=== PATIENT | female | born 1955 | race Caucasian/White ===

== ENCOUNTER → 2016-09-25 | Outpatient (CLI) | payer BC ==
[~2016-09-25] MED LIST: FLUT0.0529
[2016-09-25 10:55] LABS: BASO % 0.6 %; BASO ABS # 0.03 K/uL (0-0.2); COMPLETE YES; EOS % 6.1 %; HEMATOCRIT 38.7 % (37-47); IG% 0.2 %; LYMPH % 34.4 %; LYMPH ABS # 1.59 K/uL (1.2-3.4); MEAN CELL VOLUME 91.5 fL (80-100); MEAN CORPUSCULAR HEMOGLOBIN 31.2 pg (25-34); MEAN CORPUSCULAR HGB CONC 34.1 g/dl (32-36); MEAN PLATELET VOLUME 10.1 fL (7.4-10.4); MONO % 8.2 %; NEUT % 50.5 %; PLATELET COUNT 257 K/uL (130-400); RED BLOOD COUNT 4.23 M/uL (4.2-5.4); WHITE BLOOD COUNT 4.62 K/uL (4.8-10.8)
[2016-09-25 11:10] LABS: BLOOD UREA NITROGEN 14 mg/dl (7-18); BUN/CREATININE RATIO 16.6 (10-20); CALCIUM 9.4 mg/dl (8.5-10.1); CARBON DIOXIDE 28 mmol/L (21-32); CHLORIDE 107 mmol/L (98-107); CREATININE 0.83 mg/dl (0.60-1.20); GLUCOSE 85 mg/dl (70-99); SODIUM 141 mmol/L (136-145)
--- NOTE | 2016-09-30 09:07 | CODING QUERY MEDICAL NECESSITY ---
SUPPORTING DIAGNOSIS NEEDED Miles PALMER, A supporting diagnosis is required for the test/procedure performed on this patient in order for us to be reimbursed by the patient's insurance. Please provide a supporting diagnosis for the following test/procedure listed below next to the test name along with your signature. *If there is no additional diagnosis for this patient that would support the following test/procedure please document that below next to the test/procedure. Test(s)/Procedure(s) that require a supporting diagnosis: * ([id number]) VITAMIN D ASSAY DIAGNOSIS: DATE OF SERVICE: 09/25/16 Provider Signature: Date: Thank you Shamar Harrell [facility] Information Management Once completed, please kindly fax back to [phone] For questions please call [phone]
== END | disposition home or self-care (01) ==
LOC: C.LABBC 07:54
PROVIDERS: ATTEND Nurse Practitioner
DX: L50.1 Idiopathic urticaria (principal)

== ENCOUNTER → 2016-12-07 | Outpatient (CLI) | payer BC ==
--- NOTE | 2016-12-08 07:41 | MAMMOGRAPHY REPORT ---
BILATERAL DIGITAL SCREENING MAMMOGRAM TOMOSYNTHESIS WITH CAD: 12/07/2016 CLINICAL HISTORY: Routine screening. Patient has no complaints. TECHNIQUE: Breast tomosynthesis in addition to standard 2D mammography was performed. Current study was also evaluated with a Computer Aided Detection (CAD) system. COMPARISON: Comparison is made to exams dated: 12/05/2015 mammogram, 10/17/2014 mammogram, 09/22/2013 m ammogram, 09/07/2012 mammogram, 08/27/2010 mammogram - [facility], and 11/28/2008. BREAST COMPOSITION: The tissue of both breasts is heterogeneously dense, which may obscure small mas ses. FINDINGS: The parenchymal pattern is unchanged. No developing mass, architectural distortion or clus ter of suspicious microcalcifications is seen in either breast. IMPRESSION: ACR BI-RADS CATEGORY 2: BENIGN There is no mammographic evidence of malignancy. A 1 year screening mammogram is recommended. The pa tient will receive written notification of the results. Approximately 10% of breast cancers are not detected with mammography. A negative mammographic report should not delay biopsy if a clinically suggestive mass is present. Roseanna Hays M.D. ay/:12/07/2016 16:06:49 Professor Of Theater: Seema MACHADO(Aayush)([place]), [facility] letter sent: Normal 1/2 BI-RADS Code: ACR BI-RADS Category 2: Benign
== END | disposition home or self-care (01) ==
LOC: C.MAMM 13:16
PROVIDERS: ATTEND Family Medicine
DX: Z12.31 Encounter for screening mammogram for malignant neoplasm of breast (principal)

== ENCOUNTER 2017-06-03 10:15 | Emergency (ER) | payer OTHER ==
[~2017-06-03] VITALS: Ht 162.6 cm; Wt 73.0 kg
[2017-06-03 10:15] VITALS: O2SAT 96; Ht 162.6 cm; Wt 73.0 kg
[~2017-06-03 10:15] MED LIST changes: -ACET-1693 PO; -ASPI81TA28 PO; -CEPH500C PO; -CLR10 PO; -FLUT0.15 NAE; -IBUP-1050 PO; -MISCCAP80 PO; -MULT-506 PO; -MULTCAP7 PO; -ONDA4TAB10 SL; -OPTIRAY 320 IV PRN
[2017-06-03] MEDS ORDERED: ONDANSETRON INJ 2 MG/ML 2 ML VIAL IV STA ×2 (10:25→12:27)
[2017-06-03] MEDS ORDERED: SODIUM CHLORIDE 0.9% 1000ML 1,000 ML IV STA (10:25)
--- NOTE | 2017-06-03 10:33 | EMERGENCY ROOM VISIT NOTE ---
History First contact with patient: 10:17 Chief Complaint: SYNCOPE (NEAR SYNCOPE) Stated Complaint: REACTION TO CONTRAST IN CT History of Present Illness The patient is a 61 year old female who presents to the Emergency Room with complaints of nausea, sweating, abdominal pain, and near syncope which started today. She also notes a frontal sinus headache, intermittent chest pains, dry mouth. She has had abdominal discomfort for over a week. She saw her PCP this week and an outpt CT was ordered. This was just completed. The pain is LLQ, 4/10 , and dull. It worsens with pressure and movement. Additionally on review the patient has noted expressing some cloudy urine recently. She denies any flank/ kidney pain. She notes experiencing similar type of headaches in the past. This ACEVEDO was slow in onset. Pt denies LOC, fevers, chills, visual changes, neck pain, breathing difficulties, vomiting, back pain, melena, hematochezia, numbness, focal weakness, lymphadenopathy, rash, or other complaints. Review of Systems See HPI for pertinent positives and negatives. A total of ten systems were reviewed and were otherwise negative. Social History Smoking Status: Never Smoker Current/Historical Medications Scheduled Cephalexin Monohydrate (Keflex), 500 MG PO QID Fluticasone Propionate (Nasal) (Flonase Allergy Relief), 2 SPRAYS ABBY DAILY Loratadine (Claritin), 0.5 TAB PO DAILY Multiple Vitamins W/ Minerals (Eye Vitamins), 1 CAP PO DAILY Multivitamin (Multivitamin), 1 TAB PO DAILY Ondasetron Odt (Zofran Odt), 4 MG SL Q6H Probiotic Product (Probiotic), 1 CAP PO DAILY Scheduled PRN Acetaminophen Tab (Tylenol), 325-650 MG PO DAILY PRN for Mild Pain Physical Exam Vital Signs Date Time Temp Pulse Resp B/P (MAP) Pulse Ox O2 Delivery O2 Flow Rate FiO2 06/03/17 14:47 105 18 116/83 97 Room Air 06/03/17 14:28 100 06/03/17 14:23 97 18 129/85 99 Room Air 06/03/17 13:22 99 18 154/87 99 Room Air 06/03/17 12:01 92 10 138/86 96 Room Air 06/03/17 10:24 100 06/03/17 10:15 96 Room Air 06/03/17 10:15 105 18 154/98 97 Room Air Physical Exam GENERAL: Awake, tired and uncomfortable-appearing, in no distress. WN, WD. HENT: Normocephalic, atraumatic. Oropharynx unremarkable. EYES: Normal conjunctiva. Sclera non-icteric. NECK: Supple. No nuchal rigidity. FROM. No masses. RESPIRATORY: Clear to auscultation. No wheezes. No rales. Normal respiratory effort. CARDIAC: Normal rate. Normal rhythm. No murmurs. No rubs. Extremities warm and well perfused. Pulses equal. No JVD. GI: Soft, non-distended. LLQ tenderness to palpation. No rebound or guarding. No masses. RECTAL: Deferred. MUSCULOSKELETAL: Atraumatic. Chest examination reveals no tenderness. The back is symmetrical on inspection without obvious abnormality. There is no CVA tenderness to palpation. No joint edema. LOWER EXTREMITIES: Calves are equal size bilaterally and non-tender. No edema. No discoloration. NEURO: Normal sensorium. No sensory or motor deficits noted. SKIN: No rash or jaundice noted. Medical Decision & Procedures Laboratory Results 06/03/17 10:20 Red Blood Count 4.41, Mean Corpuscular Volume 91.6, Mean Corpuscular Hemoglobin 31.5, Mean Corpuscular Hemoglobin Concent 34.4, Mean Platelet Volume 9.3, Neutrophils (%) (Auto) 84.0, Lymphocytes (%) (Auto) 13.2, Monocytes (%) (Auto) 2.2, Eosinophils (%) (Auto) 0.3, Basophils (%) (Auto) 0.3, Neutrophils # (Auto) 5.80, Lymphocytes # (Auto) 0.91, Monocytes # (Auto) 0.15, Eosinophils # (Auto) 0.02, Basophils # (Auto) 0.02 06/03/17 10:20 Test 06/03/17 10:20 06/03/17 13:13 White Blood Count 6.90 K/uL (4.8-10.8) Red Blood Count 4.41 M/uL (4.2-5.4) Hemoglobin 13.9 g/dL (12.0-16.0) Hematocrit 40.4 % (37-47) Mean Corpuscular Volume 91.6 fL (80-100) Mean Corpuscular Hemoglobin 31.5 pg (25-34) Mean Corpuscular Hemoglobin Concent 34.4 g/dl (32-36) Platelet Count 245 K/uL (130-400) Mean Platelet Volume 9.3 fL (7.4-10.4) Neutrophils (%) (Auto) 84.0 % Lymphocytes (%) (Auto) 13.2 % Monocytes (%) (Auto) 2.2 % Eosinophils (%) (Auto) 0.3 % Basophils (%) (Auto) 0.3 % Neutrophils # (Auto) 5.80 K/uL (1.4-6.5) Lymphocytes # (Auto) 0.91 K/uL (1.2-3.4) Monocytes # (Auto) 0.15 K/uL (0.11-0.59) Eosinophils # (Auto) 0.02 K/uL (0-0.5) Basophils # (Auto) 0.02 K/uL (0-0.2) RDW Standard Deviation 43.4 fL (36.4-46.3) RDW Coefficient of Variation 12.9 % (11.5-14.5) Immature Granulocyte % (Auto) 0.0 % Immature Granulocyte # (Auto) 0.00 K/uL (0.00-0.02) Prothrombin Time 9.8 SECONDS (9.0-12.0) Prothromb Time International Ratio 0.9 (0.9-1.1) Activated Partial Thromboplast Time 22.9 SECONDS (21.0-31.0) Partial Thromboplastin Ratio 0.9 Anion Gap 6.0 mmol/L (3-11) Est Creatinine Clear Calc Drug Dose 65.8 ml/min Estimated GFR () 82.2 Estimated GFR (Non- 70.9 BUN/Creatinine Ratio 18.6 (10-20) Calcium Level 8.7 mg/dl (8.5-10.1) Magnesium Level 2.0 mg/dl (1.8-2.4) Total Bilirubin 0.8 mg/dl (0.2-1) Direct Bilirubin 0.2 mg/dl (0-0.2) Aspartate Amino Transf (AST/SGOT) 14 U/L (15-37) Alanine Aminotransferase (ALT/SGPT) 22 U/L (12-78) Alkaline Phosphatase 71 U/L (45-117) Total Creatine Kinase 100 U/L (26-192) Creatine Kinase MB 1.3 ng/ml (0.5-3.6) Creatine Kinase MB Ratio 1.3 (0-3.0) Troponin I < 0.015 ng/ml (0-0.045) Total Protein 7.5 gm/dl (6.4-8.2) Albumin 4.1 gm/dl (3.4-5.0) Lipase 133 U/L (73-393) Thyroid Stimulating Hormone (TSH) 5.810 uIu/ml (0.300-4.500) Urine Color YELLOW Urine Appearance CLEAR (CLEAR) Urine pH 8.5 (4.5-7.5) Urine Specific [place] > 1.045 (1.000-1.030) Urine Protein NEG (NEG) Urine Glucose (UA) NEG (NEG) Urine Ketones NEG (NEG) Urine Occult Blood TRACE (NEG) Urine Nitrite POS (NEG) Urine Bilirubin NEG (NEG) Urine Urobilinogen NEG (NEG) Urine Leukocyte Esterase TRACE (NEG) Urine WBC (Auto) 10-30 /hpf (0-5) Urine RBC (Auto) 0-4 /hpf (0-4) Urine Hyaline Casts (Auto) 10-30 /lpf (0-5) Urine Epithelial Cells (Auto) 0-5 /lpf (0-5) Urine Bacteria (Auto) 4+ (NEG) Medications Administered Medications (Trade) Dose Ordered Sig/Brian Route Start Time Stop Time Status Last Admin Dose Admin Sodium Chloride 1,000 ml @ 999 mls/hr Q1H1M STAT IV 06/03/17 10:25 06/03/17 11:25 DC 06/03/17 10:32 999 MLS/HR Ondansetron HCl (Zofran Inj) 4 mg NOW STAT IV 06/03/17 10:25 06/03/17 10:27 DC 06/03/17 10:37 4 MG Acetaminophen (Tylenol Tab) 1,000 mg NOW STAT PO 06/03/17 10:40 06/03/17 10:41 DC 06/03/17 10:47 500 MG Ondansetron HCl (Zofran Inj) 4 mg NOW STAT IV 06/03/17 12:27 06/03/17 12:28 DC 06/03/17 12:35 4 MG Acetaminophen (Tylenol Tab) 500 mg NOW STAT PO 06/03/17 13:37 06/03/17 13:41 DC 06/03/17 13:41 500 MG Ceftriaxone Sodium (Rocephin Inj) 1 gm NOW STAT IV 06/03/17 13:43 06/03/17 13:44 DC 06/03/17 14:19 1 GM ECG Per My Interpretation Indication: chest pain Rate (beats per minute): 98 Rhythm: normal sinus Findings: no acute ischemic change, no ectopy, other (normal intervals) Medical Decision Triage Nursing notes reviewed. The patient's presentation and history were concerning for abdominal pain, chest pain, near syncope, nausea,and headache. Etiologies such as diverticulitis, colitis, mesenteric ischemia, metabolic, infection, hypo/hyperglycemia, electrolyte abnormalities, cardiac sources, intracerebral event, toxicologic, neurologic, as well as others were entertained. The patient's outpatient CT was reviewed. She has a mild colitis. No other pathology was noted. Blood work was obtained. She was hydrated. She is given Zofran. She requested some mild analgesia for headache. She was ordered 1 g of Tylenol but only took 500 mg initially. On reassessment she was still having symptoms albeit they were somewhat improved. She was given an additional dose of Zofran as well as 500 mg of Tylenol. The patient had unremarkable blood work. Her chemistry panel was unremarkable. Urinalysis was performed and was very concerning for infection. She has had cloudy urine recently. The patient was given a dose of IV Rocephin. She was observed for several hours in the emergency department while the treatment was going on. She was frequently reassessed and was getting better each time. She was tolerating oral intake. I discussed different treatment options and the patient prefers to go home. I will start her on Keflex and give her an outpatient prescription of Zofran. Case management contacted her primary clinic and set an appointment up for Wednesday. She notes they already discussed referral to gastroenterology. She denies any significant diarrhea or recent antibiotic use. The colitis findings are not within the typical distribution for ischemia. She has a rather benign abdomen. This seems to be most likely inflammatory. She does have some mild tachycardia noted but blood pressure stable. Clinically she feels well. She will continue to hydrate. If she worsens in any way she will come back to the emergency department for reevaluation. I gave my usual and customary discussion regarding this issue. By the evaluation outlined above other emergent etiologies such as those listed in the differential, as well as others, were deemed relatively unlikely. The patient was educated about the findings as listed above. All questions were answered and the patient was pleased with the treatment. Return instructions were outlined and the patient was discharged in stable condition. The patient was referred to PCP for follow-up for a recheck of the current condition. Medication Reconcilliation Current Medication List: was personally reviewed by me Blood Pressure Screening Blood pressure disposition: Elevated BP felt to be situational, Referred to PCP Impression Primary Impression: Colitis Additional Impressions: UTI (urinary tract infection) Nausea Near syncope Departure Information Dispostion Home / Self-Care Prescriptions Ondasetron Odt (ZOFRAN ODT) 4 Mg Tab 4 MG SL Q6H for Nausea, #6 TAB Prov: Reji Brush MD 06/03/17 Cephalexin Monohydrate (Keflex) 500 Mg Cap 500 MG PO QID, #20 CAP Prov: Reji Brush MD 06/03/17 Referrals Yisel Meraz MD (PCP) Patient Instructions My [facility] Problem Qualifiers
[2017-06-03] MEDS ORDERED: ACETAMINOPHEN 500 MG TAB PO STA ×2 (10:40→13:37)
[2017-06-03 10:46] LABS: BASO % 0.3 %; BASO ABS # 0.02 K/uL (0-0.2); EOS % 0.3 %; EOS ABS # 0.02 K/uL (0-0.5); HEMATOCRIT 40.4 % (37-47); HEMOGLOBIN 13.9 g/dL (12.0-16.0); LYMPH % 13.2 %; LYMPH ABS # 0.91 K/uL (1.2-3.4); MEAN CELL VOLUME 91.6 fL (80-100); MEAN CORPUSCULAR HEMOGLOBIN 31.5 pg (25-34); MEAN CORPUSCULAR HGB CONC 34.4 g/dl (32-36); MEAN PLATELET VOLUME 9.3 fL (7.4-10.4); MONO % 2.2 %; MONO ABS # 0.15 K/uL (0.11-0.59); PLATELET COUNT 245 K/uL (130-400); RED CELL DISTRIBUTION WIDTH CV 12.9 % (11.5-14.5); RED CELL DISTRIBUTION WIDTH SD 43.4 fL (36.4-46.3)
[2017-06-03 10:54] LABS: INR 0.9 (0.9-1.1); PTT PATIENT 22.9 SECONDS (21.0-31.0)
--- NOTE | 2017-06-03 11:05 | DIAGNOSTIC IMAGING REPORT ---
CHEST ONE VIEW PORTABLE CLINICAL HISTORY: EVALUATE WEAKNESS COMPARISON STUDY: Chest radiograph July 16, 2008. FINDINGS: Lung volumes are normal. No pneumothorax or pleural effusion is noted. There is no consolidation or evidence for pulmonary edema. Cardiac size is normal. Mediastinal contours are normal. IMPRESSION: No acute cardiopulmonary findings. Electronically signed by: Cornell Smith M.D. 06/03/2017 11:04 AM Dictated Date/Time: 06/03/2017 11:03 AM
[2017-06-03 11:07] LABS: ALBUMIN 4.1 gm/dl (3.4-5.0); ALT/SGPT 22 U/L (12-78); AST/SGOT 14 U/L (15-37); BLOOD UREA NITROGEN 16 mg/dl (7-18); CALCIUM 8.7 mg/dl (8.5-10.1); CARBON DIOXIDE 27 mmol/L (21-32); CREATININE 0.88 mg/dl (0.60-1.20); GLUCOSE 109 mg/dl (70-99); LIPASE 133 U/L (73-393); POTASSIUM 3.9 mmol/L (3.5-5.1); SODIUM 132 mmol/L (136-145)
[2017-06-03] MEDS ORDERED: FLUT0.15 NAE (11:13)
[2017-06-03] MEDS ORDERED: MULTCAP7 PO (11:13)
[2017-06-03] MEDS ORDERED: CLR10 PO (11:13)
[2017-06-03] MEDS ORDERED: IBUP-1050 PO (11:13)
[2017-06-03] MEDS ORDERED: ASPI81TA28 PO (11:13)
[2017-06-03] MEDS ORDERED: MULT-506 PO (11:13)
[2017-06-03 11:16] LABS: ALKALINE PHOSPHATASE 71 U/L (45-117); CKMB 1.3 ng/ml (0.5-3.6); TOTAL PROTEIN 7.5 gm/dl (6.4-8.2)
[2017-06-03] MEDS ORDERED: ACET-1693 PO (11:30)
[2017-06-03] MEDS ORDERED: MISCCAP80 PO (11:30)
[2017-06-03] MEDS ORDERED: CEFTRIAXONE SOD INJ 1 GM ADDVIAL IV STA (13:43)
[2017-06-03 14:47] VITALS: BP 116/83; PULSE 105; O2SAT 97
[2017-06-03] MEDS ORDERED: ONDA4TAB10 SL (14:57)
[2017-06-03] MEDS ORDERED: CEPH500C PO (14:57)
== END 2017-06-03 15:08 | disposition home or self-care (01) ==
LOC: EDBD 10:15 → EDSEX 10:15 → C.EDA 10:16
DX: K52.9 Noninfective gastroenteritis and colitis, unspecified (principal); N39.0 Urinary tract infection, site not specified; R11.0 Nausea; R55 Syncope and collapse

== ENCOUNTER → 2017-06-03 | Outpatient (CLI) | payer OTHER ==
[~2017-06-03] MED LIST changes: +ACET-1693 PO; +ASPI81TA28 PO; +CEPH500C PO; +CLR10 PO; +FLUT0.15 NAE; +IBUP-1050 PO; +MISCCAP80 PO; +MULT-506 PO; +MULTCAP7 PO; +ONDA4TAB10 SL; +OPTIRAY 320 IV PRN
--- NOTE | 2017-06-03 09:51 | DIAGNOSTIC IMAGING REPORT ---
ABDOMEN AND PELVIS CT WITH IV AND ORAL CONTRAST CT DOSE: 422.46 mGy.cm HISTORY: Generalized abdominal pain. TECHNIQUE: Multiaxial CT images of the abdomen and pelvis were performed following the use of intravenous and oral contrast. A dose lowering technique was utilized adhering to the principles of ALARA. COMPARISON STUDY: None. FINDINGS: The lung bases are clear. No pneumoperitoneum. No pneumatosis. No suspicious lytic or blastic osseous lesions. The liver, gallbladder, spleen, adrenal glands, pancreas, and kidneys are unremarkable. No hydronephrosis. No retroperitoneal lymphadenopathy. The bladder, uterus, bilateral adnexa are unremarkable. Colonic diverticulosis. Mild thickening within the descending colon with minimal surrounding inflammatory change. There is also mild thickening throughout the transverse colon most pronounced at the hepatic flexure with minimal surrounding inflammatory change. Normal appendix. No bowel obstruction. IMPRESSION: Mild bowel wall thickening within the transverse colon and descending colon consistent with a colitis. This favors an inflammatory or infectious process. Electronically signed by: Kameron Huston M.D. 06/03/2017 9:49 AM Dictated Date/Time: 06/03/2017 9:39 AM
== END | disposition home or self-care (01) ==
LOC: C.CTS 08:51
PROVIDERS: ATTEND Nurse Practitioner Family
DX: R10.9 Unspecified abdominal pain (principal)